=== PATIENT | female | born 1985 ===

== ENCOUNTER → 2017-05-25 12:14 | Emergency (ER) | payer OTHER ==
[~2017-05-25 12:14] MED LIST: Aspirin Low Dose CHEW TAB* 81 MG PO ONE; Iohexol 350* (CONTRAST) 500 ML MDV IV ONE; Ketorolac INJ* 30 MG/ML 1 ML VIAL IV PUSH ONE
[2017-05-25 16:51] LABS: Hematocrit 40 % (35-47); Hemoglobin 13.3 g/dl (12.0-16.0); Mean Corpuscular HGB Conc 33 g/dl (31-36); Mean Corpuscular Hemoglobin 30 pg (27-31); Mean Corpuscular Volume 91 fL (80-97); Mean Platelet Volume 7 um3 (7.4-10.4); Red Blood Count 4.39 10^6/ul (4.0-5.4); Red Cell Distribution Width 13 % (10.5-15); White Blood Count 11.3 10^3/ul (3.5-10.8)
[2017-05-25 17:08] LABS: Troponin I 0.01 ng/mL (<0.04)
[2017-05-25 17:10] LABS: Albumin 4.5 g/dL (3.2-5.2); BUN/Creatinine Ratio 11.4 (8-20); Calcium 9.6 mg/dL (8.6-10.3); EGFR African American 110.7 (>60); Globulin 3.6 g/dL (2-4); Potassium 3.5 mmol/L (3.5-5.0); Total Bilirubin 0.7 mg/dL (0.2-1.0); Total Protein 8.1 g/dL (6.4-8.9)
--- NOTE | 2017-05-25 18:11 | RAD ---
INDICATION: Chest pain. Short of breath. Evaluate for pulmonary embolus. COMPARISON: None TECHNIQUE: Axial source images were obtained from the thoracic inlet to the hemidiaphragms following administration of [address] angiographic technique was utilized. Coronal and sagittal reconstructed images were acquired. CHEST FINDINGS: Neck/thyroid: The visualized neck to include the thyroid appear normal. Chest wall: There are no acute abnormalities of the bony thorax or chest wall. There is no supraclavicular, infraclavicular, or axillary lymphadenopathy. There are several tiny calcified mediastinal lymph nodes Lungs : There are no pulmonary parenchymal masses or infiltrates. The pulmonary interstitium appears normal. There are no endobronchial lesions. Cardiomediastinal structures: There is no CT evidence of acute pulmonary embolic disease. The heart is normal in size. There is no pericardial effusion. There is no evidence of aortic aneurysm or dissection. There is no mediastinal or hilar adenopathy. The esophagus appears normal. Pleura : There are no pleural-based masses or effusions. Other: There is a patulous GE junction. IMPRESSION: NO CT EVIDENCE OF ACUTE PULMONARY EMBOLIC DISEASE. LUNGS CLEAR.
[2017-05-25 18:45] VITALS: BP 120/76
--- NOTE | 2017-05-28 14:28 | ED ---
Odalis Baker Rebecca, scribed for Jacek Quintana MD on 05/25/17 at 1607 . HPI Chest Pain - HPI Summary HPI Summary: Pt is a 31 y/o F who presents to ED c/o left anterior chest discomfort. Sx began suddenly last night at 1930 and have been constant since onset. Sensation is characterized as pressure and described as "weird chest discomfort," ranking pain as 0/10. Sx aggravated by nothing, alleviated slightly by belching, unchanged by deep breaths, movement, ASA and Pepto Bismol. Last took ASA this morning at 0900. Additionally c/o nausea, belching, loose stool and decreased appetite. Denies vomiting, SOB, edema, fever, chills, diaphoresis and cough. No PMHx GERD. FHx GERD. Has not been on oral contraceptives recently. No recent travel. - History of Current Complaint Chief Complaint: EDChestPainROMI Time Seen by Provider: 05/25/17 12:46 Hx Obtained From: Patient Hx Last Menstrual Period: 04/2017 Onset/Duration: Started Days Ago - Last night, Still Present Time of Onset: 19:30 Timing: Constant Pain Intensity: 0 Pain Scale Used: 0-10 Numeric Chest Pain Location: Left Anterior Chest Pain Radiates: No Character: Pressure/Squeezing Aggravating Factor(s): Nothing Alleviating Factor(s): Other: - Belching Associated Signs and Symptoms: Positive: Nausea. Negative: Fever, Chills, Vomiting - Allergy/Home Medications Allergies/Adverse Reactions: Allergies Allergy/AdvReac Type Severity Reaction Status Date / Time No Known Allergies Allergy Verified 04/13/16 13:02 PMH/Surg Hx/FS Hx/Imm Hx Endocrine/Hematology History: Denies: Hx Diabetes, Hx Thyroid Disease Cardiovascular History: Denies: Hx Congestive Heart Failure, Hx Deep Vein Thrombosis, Hx Hypertension , Hx Myocardial Infarction, Hx Pacemaker/ICD Respiratory History: Denies: Hx Asthma, Hx Chronic Obstructive Pulmonary Disease (COPD), Hx Lung Cancer, Hx Pneumonia, Hx Pulmonary Embolism GI History: Denies: Hx Gall Bladder Disease, Hx Gastroesophageal Reflux Disease, Hx Gastrointestinal Bleed, Hx Ulcer, Hx Urosepsis History: Denies: Hx Kidney Stones, Hx Renal Disease Neurological History: Denies: Hx Dementia, Hx Migraine, Hx Seizures, Hx Transient Ischemic Attacks (TIA) Psychiatric History: Denies: Hx Anxiety, Hx Depression, Hx Schizophrenia, Hx Bipolar Disorder Infectious Disease History: No Infectious Disease History: Denies: Hx Clostridium Difficile, Hx Hepatitis, Hx Human Immunodeficiency Virus (HIV), Hx of Known/Suspected MRSA, Hx Shingles, Hx Tuberculosis, Hx Known/ Suspected VRE, Hx Known/Suspected VRSA, History Other Infectious Disease, Traveled Outside the [place] in Last 30 Days - Family History Known Family History: Positive: Cardiac Disease, Hypertension, Other - GERD - Social History Alcohol Use: None Substance Use Type: Reports: None Smoking Status (MU): Never Smoked Tobacco Review of Systems Negative: Fever, Chills Negative: Erythema Negative: Sore Throat Positive: Chest Pain - Pressure Negative: Shortness Of Breath, Cough Positive: Nausea, Other - Decreased appetite, belching, loose stool. Negative: Abdominal Pain, Vomiting Negative: dysuria, hematuria Negative: Myalgia, Edema Negative: Rash Neurological: Other - Negative dizziness All Other Systems Reviewed And Are Negative: Yes Physical Exam - Summary Physical Exam Summary: Constitutional: Well-developed, Well-nourished, Alert. (-) Distressed Skin: Warm, Dry HENT: Normocephalic; Atraumatic Eyes: Conjunctiva normal Neck: Musculoskeletal ROM normal neck. (-) JVD, (-) Stridor, (-) Tracheal deviation Cardio: Rhythm regular, rate normal, Heart sounds normal; Intact distal pulses; The pedal pulses are 2+ and symmetric. Radial pulses are 2+ and symmetric. (-) Murmur Pulmonary/Chest wall: Effort normal. Reproducible pain at the left 4th costochondral junction. No palpable masses. (-) Respiratory distress, (-) Wheezes, (-) Rales Abd: Soft, (-) Tenderness, (-) Distension, (-) Guarding, (-) Rebound Musculoskeletal: (-) Edema Lymph: (-) Cervical adenopathy Neuro: Alert, Oriented x3 Psych: Mood and affect Normal Bing (nurse) present for exam. Triage Information Reviewed: Yes Vital Signs On Initial Exam: Initial Vitals Temp Pulse Resp BP Pulse Ox 97.6 F 90 17 146/100 98 05/25/17 12:17 05/25/17 12:17 05/25/17 12:17 05/25/17 12:17 08/02/17 12:17 Vital Signs Reviewed: Yes - Jimbo Coma Scale Coma Scale Total: 15 Diagnostics - Vital Signs Vital Signs Temp Pulse Resp BP Pulse Ox 05/25/17 15:37 115 05/25/17 15:30 110 151/92 99 05/25/17 15:27 116 98 05/25/17 15:26 156/106 05/25/17 13:35 98.0 F 84 16 145/76 99 05/25/17 12:17 97.6 F 90 17 146/100 98 - Laboratory Result Diagrams: 05/25/17 16:40 05/25/17 16:40 Lab Statement: Any lab studies that have been ordered have been reviewed, and results considered in the medical decision making process. - CT Chest/Thorax CTA CT Interpretation: No Acute Changes - NO CT EVIDENCE OF ACUTE PULMONARY EMBOLIC DISEASE. LUNGS CLEAR. CT Interpretation Completed By: Radiologist - EKG 1231 Cardiac Rate: Tachycardia - 101 bpm EKG Rhythm: Sinus Tachycardia EKG Interpretation: No STEMI Chest Pain Course/Dx - Course Assessment/Plan: Pt is a 31 y/o F who presents to ED c/o constant left anterior chest discomfort since 1930. Sensation is characterized as pressure and described as "weird chest discomfort," ranking pain as 0/10. Sx alleviated slightly by belching, unchanged by deep breaths, movement, ASA and Pepto Bismol. Last took ASA this morning at 0900. Additionally c/o nausea, belching, loose stool and decreased appetite. Denies vomiting, SOB, edema, fever, chills, diaphoresis and cough. No PMHx GERD. FHx GERD. Has not been on oral contraceptives recently. No recent travel. WBC of 11.3, Troponin of 0.01. EKG and Chest/thorax XTA reveal no acute findings. In the ED course, pt was administered Toradol and ASA. She will be D/C to home with Dx of non-cardiac chest pain with a follow up with her PCP. She understands and agrees. Patient medications reviewed this visit. Elevated BP noted. - Diagnoses Provider Diagnoses: Non-cardiac chest pain Discharge - Discharge Plan Condition: Stable Disposition: HOME Patient Education Materials: Noncardiac Chest Pain (ED) Referrals: [facility] [place] [facility] [Outside] (Follow up in 2-3 days. ) Additional Instructions: Take anti-inflammatories and Tylenol as needed. RETURN TO EMERGENCY DEPARTMENT FOR ANY RETURNING OR WORSENING SYMPTOMS. The documentation as recorded by the Odalis gonzalez Rebecca accurately reflects the service I personally performed and the decisions made by me, Jacek Quintana MD.
== END | disposition home or self-care (01) ==
LOC: ED 12:14
DX: R07.89 Other chest pain (principal); R11.0 Nausea
CPT/HCPCS: 36415; 71275; 80053; 83605; 84484; 85025; 93005; 96374; 99283; J1885; Q9967